=== PATIENT | female | born 1940 | race Caucasian/White ===

== ENCOUNTER 2019-03-23 15:42 | Emergency (ER) | payer MEDICARE, BC ==
--- NOTE | 2019-03-23 15:46 | UC ---
Shortness of Breath HPI - HPI Summary HPI Summary: 78 yo female presents with SOB. She tells me that she does not know her medical history or medications well and relies on her for most of this. They tell me that they are in town for a [employer] summer event. Over the last week pt has felt short of breath. States it is not worse today, but has "continued". Pt uses a walker at baseline. Over the last week has become very short of breath walking short distances which is unusual for her. Today feels a little lightheaded. Denies recent illness, fever, chills, chest pain, abdominal pain, vomiting, dysuria, headache. Pt and are unsure of all medical history, but do remember DVT, NPH, heart murmur, and ARDS. - History of Current Complaint Stated Complaint: SHORT OF BREATH Time Seen by Provider: 03/23/19 15:44 Hx Obtained From: Patient, Family/Planning And Analysis Manager Onset/Duration: Gradual Onset PMH/Surg Hx/FS Hx/Imm Hx - Additional Past Medical History Additional PMH: Heart murmur DVT NPH ARDS Cardiovascular History: Hypertension - Surgical History Surgical History: Yes Surgery Procedure, Year, and Place: Shunt brain - Family History Known Family History: Positive: Unknown - Social History Occupation: Retired Lives: With Family Alcohol Use: None Substance Use Type: None Smoking Status (MU): Never Smoked Tobacco Review of Systems All Other Systems Reviewed And Are Negative: Yes Constitutional: Positive: Negative Skin: Positive: Negative Eyes: Positive: Negative ENT: Positive: Negative Respiratory: Positive: Shortness Of Breath Cardiovascular: Positive: Negative Gastrointestinal: Positive: Negative Genitourinary: Positive: Negative Motor: Positive: Negative Neurovascular: Positive: Negative Musculoskeletal: Positive: Negative Neurological: Positive: Negative Psychological: Positive: Negative Physical Exam - Summary Physical Exam Summary: GENERAL: NAD. WDWN. No pain distress. SKIN: No rashes, sores, lesions, or open wounds. NECK: Supple. Nontender. No lymphadenopathy. CHEST: CTAB. No r/r/w. No accessory muscle use. Breathing comfortably and in no distress. CV: RRR. 5/6 systolic murmur. Pulses intact. Cap refill <2seconds. Slight b/l foot edema. ABDOMEN: Soft. NTTP. No distention or guarding. No CVA tenderness. Bowel sounds present NEURO: Alert. PSYCH: Age appropriate behavior. Triage Information Reviewed: Yes Vital Signs: Vital Signs: Temp Pulse Resp BP Pulse Ox 98.0 F 85 18 122/61 100 03/23/19 15:47 03/23/19 15:47 03/23/19 15:47 03/23/19 15:47 03/23/19 15:47 Vital Signs Reviewed: Yes Shortness of Breath Dx - Course Course Of Treatment: EKG: NSR 90bpm. No ST changes as read by Dr. Gasca. Discussed the need for higher level of care with pt and her including labwork and imaging. I recommended pt be further evaluated in the ED and they were agreeable to this. I offered an ambulance, but pt and declined - will drive her. - Differential Dx/Diagnosis Provider Diagnosis: VILLALBA (dyspnea on exertion) Discharge - Sign-Out/Discharge Documenting (check all that apply): Patient Departure All imaging exams completed and their final reports reviewed: No Studies - Discharge Plan Condition: Stable Disposition: HOME-RECOMMEND TO ED Referrals: No Primary Care Phys,NOPCP [Primary Care Provider] - Additional Instructions: Please go to the ER for further evaluation of your shortness of breath on exertion - Billing Disposition and Condition Condition: STABLE Disposition: Home-Recommend to ED
[2019-03-23 15:58] VITALS: BP 122/61
== END 2019-03-23 16:20 | disposition home health service (06) ==
LOC: UCEAST 15:42
DX: R06.00 Dyspnea, unspecified (principal); I10 Essential (primary) hypertension; Z86.718 Personal history of other venous thrombosis and embolism
CPT/HCPCS: 99202; G0463

== ENCOUNTER 2019-03-23 16:55 | Inpatient (IN) | payer MEDICARE, BC ==
[2019-03-23 17:41] LABS: ABS Basophils 0.1 10^3/ul (0-0.2); ABS Eosinophils 0.1 10^3/ul (0-0.6); ABS Lymphocytes 1.1 10^3/ul (1.0-4.8); ABS Monocytes 0.9 10^3/ul (0-0.8); ABS Neutrophils 13.5 10^3/ul (1.5-7.7); ABS Nucleated RBC 0.1 10^3/ul; Eosinophil % 0.5 %; Hematocrit 17 % (35-47); Lymphocyte % 7.3 %; Mean Corpuscular HGB Conc 29 g/dL (31-36); Mean Corpuscular Hemoglobin 24 pg (27-31); Mean Corpuscular Volume 84 fL (80-97); Mean Platelet Volume 7.1 fL (7.4-10.4); Nucleated Red Blood Cells % 0.3; Platelet Count 489 10^3/uL (150-450); Red Blood Count 2.05 10^6 /uL (3.70-4.87); Red Cell Distribution Width 21 % (10-15); White Blood Count 15.6 10^3/uL (3.5-10.8)
[2019-03-23 17:46] LABS: Troponin I 0.02 ng/mL (<0.04)
[2019-03-23] MEDS ORDERED: NS 0.9% 1000 ML** 1,000 ML IV ONE (18:13)
[2019-03-23 18:21] LABS: Microcytosis 2+; Polychromasia 1+
[2019-03-23 18:34] LABS: ALT 17 U/L (7-52); AST 15 U/L (13-39); Albumin 3.9 g/dL (3.2-5.2); Albumin/Globulin Ratio 1.6 (1-3); Alkaline Phosphatase 74 U/L (34-104); BUN/Creatinine Ratio 26.7 (8-20); Blood Urea Nitrogen 46 mg/dL (6-24); C Reactive Protein 6.09 mg/L (<8.01); CO2 Carbon Dioxide 23 mmol/L (22-32); Calcium 11.3 mg/dL (8.6-10.3); Chloride 106 mmol/L (101-111); EGFR African American 34.9 (>60); EGFR Non-African American 28.8 (>60); Globulin 2.4 g/dL (2-4); Glucose 117 mg/dL (70-100); Sodium 139 mmol/L (135-145); Total Protein 6.3 g/dL (6.4-8.9)
[2019-03-23 18:38] LABS: Anion Gap 10 mmol/L (2-11); Potassium 5.6 mmol/L (3.5-5.0)
--- NOTE | 2019-03-23 19:03 | ED ---
Shortness of Breath - HPI Summary HPI Summary: Patient presented to the ED from convenient care complaining of exertional SOB and lightheadedness 1 week. Patient had a 3.[address] from [facility] to [place] on Wednesday, and symptoms started Wednesday, patient sent from urgent care to rule out PE. Patient has history of DVT, not currently anticoagulated. Patient has also has history of right sided shunt from brain to peritoneal cavity. History of chronic wounds on right lower extremity 6 months followed by wound care once a week. History of compression socks on left lower extremity to prevent edema. Patient and deny fever, cough, sore throat, CP, N/V/D, abdominal pain, change in urine, change in BM. Patient and for historians on medical history of patient. Nonsmoker. - History of Current Complaint Chief Complaint: EDGeneral Time Seen by Provider: 03/23/19 17:32 Hx Obtained From: Patient, Family/School Bus Driver/Mechanic Onset/Duration: Gradual Onset, Lasting Days Current Severity: Moderate Aggravating Factors: Other - Exertion Associated Signs & Symptoms: Negative - Allergy/Home Medications Allergies/Adverse Reactions: Allergies Allergy/AdvReac Type Severity Reaction Status Date / Time No Known Allergies Allergy Verified 03/23/19 17:01 Home Medications: Home Medications Medical Marijuana 0.75 ml PO DAILY 03/23/19 [History Confirmed 03/23/19] Meloxicam(NF) [Mobic(NF)] 15 mg PO DAILY 03/23/19 [History Confirmed 03/23/19] PMH/Surg Hx/FS Hx/Imm Hx Endocrine/Hematology History: Denies: Hx Anticoagulant Therapy Cardiovascular History: Denies: Hx Pacemaker/ICD History: Denies: Hx Dialysis Sensory History: Denies: Hx Legally Blind Opthamlomology History: Denies: Hx Eye Prosthesis EENT History: Denies: Hx Deafness Neurological History: Denies: Hx Developmental Delay - Surgical History Surgery Procedure, Year, and Place: Shunt brain Infectious Disease History: No Infectious Disease History: Denies: Traveled Outside the [place] in Last 30 Days - Family History Known Family History: Positive: Unknown - Social History Alcohol Use: None Substance Use Type: Reports: None Smoking Status (MU): Never Smoked Tobacco Review of Systems Constitutional: Negative Eyes: Negative ENT: Negative Cardiovascular: Negative Positive: Shortness Of Breath Gastrointestinal: Negative Genitourinary: Negative Musculoskeletal: Negative Skin: Negative Neurological: Negative Psychological: Normal All Other Systems Reviewed And Are Negative: Yes Physical Exam - Summary Physical Exam Summary: Neuro exam normal. Lung sounds clear to auscultation bilaterally. RRR. Abdomen soft nontender. No peripheral edema. Triage Information Reviewed: Yes Vital Signs On Initial Exam: Initial Vitals Temp Pulse Resp BP Pulse Ox 98.5 F 79 18 144/56 99 03/23/19 16:59 03/23/19 16:59 03/23/19 16:59 03/23/19 16:59 03/23/19 16:59 Vital Signs Reviewed: Yes Appearance: Positive: Well-Appearing Skin: Positive: Warm Head/Face: Positive: Normal Head/Face Inspection Eyes: Positive: Normal Neck: Positive: Supple Respiratory/Lung Sounds: Positive: Clear to Auscultation Cardiovascular: Positive: Normal Abdomen Description: Positive: Nontender Musculoskeletal: Positive: Normal Neurological: Positive: Normal Psychiatric: Positive: Normal AVPU Assessment: Alert - Franco Coma Scale Best Eye Response: 4 - Spontaneous Best Motor Response: 6 - Obeys Commands Best Verbal Response: 5 - Oriented Coma Scale Total: 15 Diagnostics - Vital Signs Vital Signs Temp Pulse Resp BP Pulse Ox 03/23/19 18:07 95 169/57 03/23/19 16:59 98.5 F 79 18 144/56 99 - Laboratory Lab Results: Lab Results 03/23/19 03/23/19 03/23/19 Range/Units 17:16 17:16 17:16 WBC 15.6 H (3.5-10.8) 10^3/uL RBC 2.05 L (3.70-4.87) 10^6 /uL Hgb 5.0 L* (12.0-16.0) g/dL Hct 17 L (35-47) % MCV 84 (80-97) fL MCH 24 L (27-31) pg MCHC 29 L (31-36) g/dL RDW 21 H (10-15) % Plt Count 489 H (150-450) 10^3/uL MPV 7.1 L (7.4-10.4) fL Neut % (Auto) 86.0 % Lymph % (Auto) 7.3 % [place] % (Auto) 5.8 % Eos % (Auto) 0.5 % Baso % (Auto) 0.4 % Absolute Neuts (auto) 13.5 H (1.5-7.7) 10^3/ul Absolute Lymphs (auto) 1.1 (1.0-4.8) 10^3/ul Absolute Monos (auto) 0.9 H (0-0.8) 10^3/ul Absolute Eos (auto) 0.1 (0-0.6) 10^3/ul Absolute Basos (auto) 0.1 (0-0.2) 10^3/ul Absolute Nucleated RBC 0.1 10^3/ul Nucleated RBC % 0.3 Polychromasia 1+ Hypochromasia 1+ Anisocytosis 2+ Microcytosis 2+ Macrocytosis 1+ D-Dimer, Quantitative (Less Than 230) ng/mL Sodium 139 (135-145) mmol/L Potassium 5.6 H (3.5-5.0) mmol/L Chloride 106 (101-111) mmol/L Carbon Dioxide 23 (22-32) mmol/L Anion Gap 10 (2-11) mmol/L BUN 46 H (6-24) mg/dL Creatinine 1.72 H (0.51-0.95) mg/dL Est GFR ( Amer) 34.9 (>60) Est GFR (Non-Af Amer) 28.8 (>60) BUN/Creatinine Ratio 26.7 H (8-20) Glucose 117 H (70-100) mg/dL Lactic Acid 1.9 (0.5-2.0) mmol/L Calcium 11.3 H (8.6-10.3) mg/dL Total Bilirubin 0.30 (0.2-1.0) mg/dL AST 15 (13-39) U/L ALT 17 (7-52) U/L Alkaline Phosphatase 74 (34-104) U/L Troponin I 0.02 (<0.04) ng/mL C-Reactive Protein 6.09 (<8.01) mg/L B-Natriuretic Peptide (<=100) pg/mL Total Protein 6.3 L (6.4-8.9) g/dL Albumin 3.9 (3.2-5.2) g/dL Globulin 2.4 (2-4) g/dL Albumin/Globulin Ratio 1.6 (1-3) Blood Type Antibody Screen Crossmatch 03/23/19 03/23/19 03/23/19 Range/Units 17:16 17:16 17:16 WBC (3.5-10.8) 10^3/uL RBC (3.70-4.87) 10^6 /uL Hgb (12.0-16.0) g/dL Hct (35-47) % MCV (80-97) fL MCH (27-31) pg MCHC (31-36) g/dL RDW (10-15) % Plt Count (150-450) 10^3/uL MPV (7.4-10.4) fL Neut % (Auto) % Lymph % (Auto) % [place] % (Auto) % Eos % (Auto) % Baso % (Auto) % Absolute Neuts (auto) (1.5-7.7) 10^3/ul Absolute Lymphs (auto) (1.0-4.8) 10^3/ul Absolute Monos (auto) (0-0.8) 10^3/ul Absolute Eos (auto) (0-0.6) 10^3/ul Absolute Basos (auto) (0-0.2) 10^3/ul Absolute Nucleated RBC 10^3/ul Nucleated RBC % Polychromasia Hypochromasia Anisocytosis Microcytosis Macrocytosis D-Dimer, Quantitative 282 H (Less Than 230) ng/mL Sodium (135-145) mmol/L Potassium (3.5-5.0) mmol/L Chloride (101-111) mmol/L Carbon Dioxide (22-32) mmol/L Anion Gap (2-11) mmol/L BUN (6-24) mg/dL Creatinine (0.51-0.95) mg/dL Est GFR ( Amer) (>60) Est GFR (Non-Af Amer) (>60) BUN/Creatinine Ratio (8-20) Glucose (70-100) mg/dL Lactic Acid (0.5-2.0) mmol/L Calcium (8.6-10.3) mg/dL Total Bilirubin (0.2-1.0) mg/dL AST (13-39) U/L ALT (7-52) U/L Alkaline Phosphatase (34-104) U/L Troponin I (<0.04) ng/mL C-Reactive Protein (<8.01) mg/L B-Natriuretic Peptide 78 (<=100) pg/mL Total Protein (6.4-8.9) g/dL Albumin (3.2-5.2) g/dL Globulin (2-4) g/dL Albumin/Globulin Ratio (1-3) Blood Type Pending Antibody Screen Pending Crossmatch See Detail Result Diagrams: 03/23/19 17:16 03/23/19 17:16 Lab Statement: Any lab studies that have been ordered have been reviewed, and results considered in the medical decision making process. Course/Dx - Course Course Of Treatment: Patient presented to the ED from convenient care complaining of exertional SOB and lightheadedness 1 week. Patient had a 3.[address] from [facility] to [place] on Wednesday, and symptoms started Wednesday, patient sent from urgent care to rule out PE. Patient has history of DVT, not currently anticoagulated. Patient has also has history of right sided shunt from brain to peritoneal cavity. History of chronic wounds on right lower extremity 6 months followed by wound care once a week. History of compression socks on left lower extremity to prevent edema. Patient and deny fever, cough, sore throat, CP, N/V/D, abdominal pain, change in urine, change in BM. Patient and for historians on medical history of patient. Nonsmoker. Vital signs within normal limits. Hgb 5.0. HCT 17. WBC 15.6. D-dimer 282. Potassium 5.6. BUN 46. Creatinine 1.72. Calcium 11.3. Patient admitted to hospitalist for transfusion. - Diagnoses Provider Diagnoses: Anemia, Transfusion of blood during current hospitalisation, Hypercalcemia, Hyperkalemia, Elevated serum creatinine Discharge - Sign-Out/Discharge Documenting (check all that apply): Patient Departure Patient Received Moderate/Deep Sedation with Procedure: No - Discharge Plan Condition: Fair Disposition: ADMITTED TO [facility] - Billing Disposition and Condition Condition: FAIR Disposition: Admitted to [facility]
[2019-03-23 19:10] LABS: Urine Appearance Cloudy; Urine Bilirubin Negative (Negative); Urine Blood Negative (Negative); Urine Color Yellow; Urine Glucose Negative (Negative); Urine Ketones Negative (Negative); Urine Nitrite Negative (Negative); Urine Protein Negative (Negative); Urine Specific Gravity 1.019 (1.010-1.030); Urine Urobilinogen Negative (Negative)
[2019-03-23 19:26] LABS: Activated Partial Thrombo Time 26.9 seconds (26.0-38.0); INR 0.93 (0.82-1.09)
[2019-03-23] MEDS ORDERED: Acetaminophen TAB* 325 MG PO PRN (19:47)
[2019-03-23] MEDS ORDERED: TAPENTADOL 75 MG PO PRN (19:47)
[2019-03-23] MEDS ORDERED: Pantoprazole IV* 40 MG IV ONE (19:49)
[2019-03-23] MEDS ORDERED: Furosemide IV* 10 MG/ML 2 ML VIAL (20 MG) IV ONE (20:10)
[2019-03-23 20:16] LABS: Total Iron Binding Capacity 496 mcg/dL (250-450); Transferrin 354 mg/dL (203-362)
[2019-03-23 20:19] LABS: % Iron Saturation 4 % (15-55); Iron < 20 ug/dL (50-212)
[2019-03-23 20:41] LABS: Folate 12.73 ng/mL (>3.99)
--- NOTE | 2019-03-23 21:02 | HP ---
HISTORY AND PHYSICAL: DATE OF ADMISSION: 03/23/19 PRIMARY CARE PHYSICIAN: Out of state in [place]. CHIEF COMPLAINT: Shortness of breath, progressively getting worse. SUBJECTIVE: This is a 78-year-old female comes into the emergency room accompanied by her secondary to progressive shortness of breath that started sharply on Wednesday after a 3-1/[address] from [place], [place] for a course at [employer]. The patient states that she did not have any symptoms prior to her drive; however, on Wednesday, while she was attending the course at [employer], she was developing some shortness of breath with exertion , even out of work walking up the ramp to her class and back. This has progressed over the past few days. Finally, today her dyspnea was even at rest , so he brought her to the emergency room, and her initial workup in the emergency room revealed profound anemia with hemoglobin of 5, hematocrit 17, and white count of 15,000, platelets 489. Her chemistry is significant for potassium of 5.6, BUN 46, creatinine 1.7. Therefore, medicine service was called to evaluate and admit the patient for symptomatic anemia. The patient was seen and evaluated by me in the ER. History was obtained as above. The patient does report some lightheadedness but no chest pain. She does have the shortness of breath. No palpitations. No focal weakness. She denies any upper GI symptoms such as vomiting or emesis. Denies any melena; however, she is not able to comment on the color of her stool as she was not observing it. PAST MEDICAL HISTORY: Limited to the history obtained by the and is significant for: 1. Chronic back pain. She is on medical marijuana, Nucynta, Mobic, Advil. 2. History of normal pressure hydrocephalus, status post DIAGNOSTIC RADIOLOGIST shunt few years ago. 3. Status post bilateral hip replacement. 4. L4-L5 fusion. 5. History of ARDS 15 years ago. 6. Hyperlipidemia. 7. Hypertension. 8. GERD. 9. Right lower extremity ulcers due to trauma. She follows with a vascular surgeon, however. MEDICATIONS: 1. Cymbalta 90 mg daily. 2. Prinivil 40 mg daily. 3. Wellbutrin 300 daily. 4. Atrovent nasal spray for allergy. 5. Prilosec 20 mg daily. 6. Verapamil SR 120 daily. 7. Latanoprost 0.005% solution eye drop. 8. Lipitor 80 daily. 9. Nucynta 75 mg as needed every 6 hours. 10. Prolia 60 mg every 6 months. 11. Mobic 15 mg daily. 12. Zetia 10 mg daily. 13. Ibuprofen 200 mg every day as needed in addition to the Mobic. 14. Citracal. 15. B12. 16. Vitamin D. 17. Tylenol p.r.n. 18. Senna. ALLERGIES: She is allergic to IV DYE. FAMILY HISTORY: Father, known history of CVA. Mother had history of primary biliary cirrhosis. SOCIAL HISTORY: No smoking. Very seldom alcohol. No drugs. 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 She is , with 3 children. REVIEW OF SYSTEMS: As per HPI. PHYSICAL EXAMINATION GENERAL: She is awake, alert, oriented, able to provide history in full sentences. VITAL SIGNS: Temperature is 98.5, pulse is 95, blood pressure 169/57, respiratory rate 18, satting 99%. HEENT: Head and Neck: Normocephalic, atraumatic. Supple. She does have significant pallor, pale sclerae. LUNGS: Clear to auscultation. CARDIOVASCULAR: S1, S2. Regular rate and rhythm. ABDOMEN: Positive bowel sounds. Soft, nontender, nondistended. RECTAL: Exam was deferred. GENITALIA: Exam was deferred. EXTREMITIES: She does have bilateral onychomycosis. Bilateral lower extremities wrapped up with RADHA stocking and the right lower extremity wrapped with an Jesus wrap and the patient says she does have Jesus wrap. DIAGNOSTIC STUDIES/LAB DATA: Her labs were significant for sodium 139, chloride 106, BUN 46, sugar 117, creatinine 1.7, bicarb 23, potassium 5.6, calcium 11.3. BNP 78. CRP 6. AST 15, ALT 17, bili 0.3. CBC: White count 15,000, hemoglobin 5, hematocrit 17, platelets 489. EKG: Normal sinus rhythm, rate at 79. IMPRESSION AND PLAN: This is a 78-year-old female comes in with exertional dyspnea, found to be profoundly anemic with hemoglobin 5.0, also incidentally calcium of 11.3, potassium of 5.6. 1. Anemia. Etiology unclear. I suspect upper gastrointestinal given the history of Mobic with Advil along with history of gastroesophageal reflux disease. I am going to put her on clear liquid, keep her n.p.o. after midnight. GI consultation with Dr. Alanis was requested, possible EGD in the morning. IV fluids at 80 cc an hour, we will hold while transfusion. Status post type and cross, we will transfuse 2-3 units overnight, repeat labs in the morning. I did request to add iron studies to the ER labs from before the transfusion along with B12 and folate. 2. Other etiology for dyspnea, this could be pulmonary embolism; however, I am going to proceed with ultrasound. I cannot obtain CTA as she is allergic to DYE plus the renal insufficiency. The reason why because she did have a 3-1/2 hour ride and her dyspnea started suddenly on Wednesday, she may have already chronic anemia and her sudden onset of dyspnea could have been possible pulmonary embolism in addition to her anemia. Therefore, I am going to obtain an ultrasound in the morning and possible V/Q scan as she cannot tolerate CTA. 3. For her hypercalcemia probably from her volume contraction, we will correct with IV fluids. 4. Hyperkalemia, similar reason, due to possibly from her Prinivil and dehydration. We will correct with IV fluids. 5. History of chronic pain. We will hold the Mobic and Advil. Continue with Nucynta and Cymbalta for now. 6. For her hypertension, we are going to hold off on the Prinivil. Continue verapamil with holding parameters. 7. DVT prophylaxis: For now, RADHA lemon. 8. For her lower extremity ulcers, we will have a nurse assessment and possible dressing changes. If she does require wound care, we will request in the morning. [id number]/[facility] #: [id number] REBECCA
[2019-03-23] MEDS: Pantoprazole* 80 mg IN NS 80 MG/250 ML BAG IV SCH (23:05)
[2019-03-24] MEDS: NS 0.9% 1000 ML** 1,000 ML IV SCH (06:25)
[2019-03-24 07:22] LABS: ABS Basophils 0.1 10^3/ul (0-0.2); ABS Eosinophils 0.1 10^3/ul (0-0.6); ABS Lymphocytes 1.3 10^3/ul (1.0-4.8); ABS Monocytes 0.8 10^3/ul (0-0.8); ABS Neutrophils 9.5 10^3/ul (1.5-7.7); Eosinophil % 0.8 %; Hematocrit 31 % (35-47); Hemoglobin 10.1 g/dL (12.0-16.0); Lymphocyte % 11.2 %; Mean Corpuscular HGB Conc 33 g/dL (31-36); Mean Corpuscular Hemoglobin 28 pg (27-31); Mean Corpuscular Volume 85 fL (80-97); Mean Platelet Volume 7.4 fL (7.4-10.4); Nucleated Red Blood Cells % 0.3; Platelet Count 333 10^3/uL (150-450); Red Blood Count 3.64 10^6 /uL (3.70-4.87); Red Cell Distribution Width 17 % (10-15); White Blood Count 11.9 10^3/uL (3.5-10.8)
[2019-03-24 07:31] LABS: BUN/Creatinine Ratio 26.4 (8-20); Calcium 10.3 mg/dL (8.6-10.3); EGFR African American 44.2 (>60); EGFR Non-African American 36.6 (>60); Magnesium 2.3 mg/dL (1.9-2.7); Potassium 4.6 mmol/L (3.5-5.0)
[2019-03-24] MEDS: Ezetimibe TAB* 10 MG PO SCH ×2 (08:52→11:43)
[2019-03-24] MEDS: BuPROPion XL* 150 MG TAB.XL PO SCH ×2 (08:52→11:43)
[2019-03-24] MEDS: DULoxetine DR CAP* 30 MG CAP.DR PO SCH ×2 (08:52→11:42)
[2019-03-24] MEDS: Atorvastatin* 80 MG TAB PO SCH ×2 (08:53→11:43)
[2019-03-24] MEDS: Latanoprost 0.005%* 2.5 ml BTL BOTH EYES SCH (09:12)
[2019-03-24] MEDS: Verapamil SR TAB* 240 MG PO SCH (09:12)
[2019-03-24] MEDS: Pantoprazole* 80 mg IN NS 80 MG/250 ML BAG IV SCH ×2 (09:23→18:48)
--- NOTE | 2019-03-24 14:59 | PN ---
Subjective Date of Service: 03/24/19 Interval History: no complains. NPO for EGD today. H/H improved s/p 3 units pRBC. Remains on protonix drip pending EGD Past Medical History: Unchanged from Admission Objective Active Medications: Acetaminophen (Tylenol Tab*) 650 mg PO Q4H PRN PRN Reason: PAIN Atorvastatin Calcium (Lipitor*) 80 mg PO DAILY [facility] Last Admin: 03/24/19 11:43 Dose: 80 mg Bupropion HCl (Wellbutrin Xl *) 300 mg PO DAILY [facility] Last Admin: 03/24/19 11:43 Dose: 300 mg Duloxetine HCl (Cymbalta Cap*) 90 mg PO DAILY [facility] Last Admin: 03/24/19 11:42 Dose: 90 mg Ezetimibe (Zetia Tab*) 10 mg PO DAILY [facility] Last Admin: 03/24/19 11:43 Dose: 10 mg Pantoprazole Sodium (Protonix Iv Bag*) 80 mg in 250 mls @ 25 mls/hr IV Q10H [facility] Last Admin: 03/24/19 09:23 Dose: 25 mls/hr Sodium Chloride (Ns 0.9% 1000 Ml) 1,000 mls @ 100 mls/hr IV .per rate [facility] Last Admin: 03/24/19 06:25 Dose: 100 mls/hr Latanoprost (Xalatan 0.005%*) 1 drop BOTH EYES DAILY [facility] Last Admin: 03/24/19 09:12 Dose: 1 drop Tapentadol (Nucynta(Nf)) 75 mg PO Q6H PRN PRN Reason: PAIN Verapamil HCl (Calan Sr Tab*) 120 mg PO DAILY [facility] Last Admin: 03/24/19 09:12 Dose: 120 mg Vital Signs - 8 hr 03/24/19 03/24/19 03/24/19 07:15 08:00 11:15 Temperature 97.8 F 97.7 F Pulse Rate 87 85 Respiratory 18 16 18 Rate Blood Pressure 148/65 141/55 (mmHg) O2 Sat by Pulse 97 99 Oximetry Oxygen Devices in Use Now: None Appearance: Awake, alert. no distress Eyes: No Scleral Icterus Ears/Nose/Mouth/Throat: Mucous Membranes Moist Neck: NL Appearance and Movements; NL JVP, Trachea Midline Respiratory: Symmetrical Chest Expansion and Respiratory Effort Abdominal: NL Sounds; No Tenderness; No Distention Neurological: Alert and Oriented x 3 Result Diagrams: 03/24/19 06:58 03/24/19 06:58 Additional Lab and Data: Lab Results 03/23/19 03/23/19 03/23/19 Range/Units 17:16 17:16 17:16 WBC 15.6 H (3.5-10.8) 10^3/uL RBC 2.05 L (3.70-4.87) 10^6 /uL Hgb 5.0 L* (12.0-16.0) g/dL Hct 17 L (35-47) % MCV 84 (80-97) fL MCH 24 L (27-31) pg MCHC 29 L (31-36) g/dL RDW 21 H (10-15) % Plt Count 489 H (150-450) 10^3/uL MPV 7.1 L (7.4-10.4) fL Neut % (Auto) 86.0 % Lymph % (Auto) 7.3 % [place] % (Auto) 5.8 % Eos % (Auto) 0.5 % Baso % (Auto) 0.4 % Absolute Neuts (auto) 13.5 H (1.5-7.7) 10^3/ul Absolute Lymphs (auto) 1.1 (1.0-4.8) 10^3/ul Absolute Monos (auto) 0.9 H (0-0.8) 10^3/ul Absolute Eos (auto) 0.1 (0-0.6) 10^3/ul Absolute Basos (auto) 0.1 (0-0.2) 10^3/ul Absolute Nucleated RBC 0.1 10^3/ul Nucleated RBC % 0.3 Polychromasia 1+ Hypochromasia 1+ Anisocytosis 2+ Microcytosis 2+ Macrocytosis 1+ D-Dimer, Quantitative (Less Than 230) ng/mL Sodium 139 (135-145) mmol/L Potassium 5.6 H (3.5-5.0) mmol/L Chloride 106 (101-111) mmol/L Carbon Dioxide 23 (22-32) mmol/L Anion Gap 10 (2-11) mmol/L BUN 46 H (6-24) mg/dL Creatinine 1.72 H (0.51-0.95) mg/dL Est GFR ( Amer) 34.9 (>60) Est GFR (Non-Af Amer) 28.8 (>60) BUN/Creatinine Ratio 26.7 H (8-20) Glucose 117 H (70-100) mg/dL Lactic Acid 1.9 (0.5-2.0) mmol/L Calcium 11.3 H (8.6-10.3) mg/dL Total Bilirubin 0.30 (0.2-1.0) mg/dL AST 15 (13-39) U/L ALT 17 (7-52) U/L Alkaline Phosphatase 74 (34-104) U/L Troponin I 0.02 (<0.04) ng/mL C-Reactive Protein 6.09 (<8.01) mg/L B-Natriuretic Peptide (<=100) pg/mL Total Protein 6.3 L (6.4-8.9) g/dL Albumin 3.9 (3.2-5.2) g/dL Globulin 2.4 (2-4) g/dL Albumin/Globulin Ratio 1.6 (1-3) Blood Type Antibody Screen Crossmatch 03/23/19 03/23/19 03/23/19 Range/Units 17:16 17:16 17:16 WBC (3.5-10.8) 10^3/uL RBC (3.70-4.87) 10^6 /uL Hgb (12.0-16.0) g/dL Hct (35-47) % MCV (80-97) fL MCH (27-31) pg MCHC (31-36) g/dL RDW (10-15) % Plt Count (150-450) 10^3/uL MPV (7.4-10.4) fL Neut % (Auto) % Lymph % (Auto) % [place] % (Auto) % Eos % (Auto) % Baso % (Auto) % Absolute Neuts (auto) (1.5-7.7) 10^3/ul Absolute Lymphs (auto) (1.0-4.8) 10^3/ul Absolute Monos (auto) (0-0.8) 10^3/ul Absolute Eos (auto) (0-0.6) 10^3/ul Absolute Basos (auto) (0-0.2) 10^3/ul Absolute Nucleated RBC 10^3/ul Nucleated RBC % Polychromasia Hypochromasia Anisocytosis Microcytosis Macrocytosis D-Dimer, Quantitative 282 H (Less Than 230) ng/mL Sodium (135-145) mmol/L Potassium (3.5-5.0) mmol/L Chloride (101-111) mmol/L Carbon Dioxide (22-32) mmol/L Anion Gap (2-11) mmol/L BUN (6-24) mg/dL Creatinine (0.51-0.95) mg/dL Est GFR ( Amer) (>60) Est GFR (Non-Af Amer) (>60) BUN/Creatinine Ratio (8-20) Glucose (70-100) mg/dL Lactic Acid (0.5-2.0) mmol/L Calcium (8.6-10.3) mg/dL Total Bilirubin (0.2-1.0) mg/dL AST (13-39) U/L ALT (7-52) U/L Alkaline Phosphatase (34-104) U/L Troponin I (<0.04) ng/mL C-Reactive Protein (<8.01) mg/L B-Natriuretic Peptide 78 (<=100) pg/mL Total Protein (6.4-8.9) g/dL Albumin (3.2-5.2) g/dL Globulin (2-4) g/dL Albumin/Globulin Ratio (1-3) Blood Type Pending Antibody Screen Pending Crossmatch See Detail Microbiology and Other Data: Microbiology 03/23/19 20:03 Stool Occult Blood (DANIELLE) - Final Stool Assess/Plan/Problems-Billing Assessment: 78 y/o female admitted for Anemia incidental found after she presented for dyspenia. for EGD on 03/24/19 - Patient Problems (1) Anemia Current Visit: Yes Status: Acute Code(s): D64.9 - ANEMIA, UNSPECIFIED SNOMED Code(s): 385767905 Comment: - s/p 3 units pRBC - For EGD - Protonix drip (2) Back pain Current Visit: Yes Status: Acute Code(s): M54.9 - DORSALGIA, UNSPECIFIED SNOMED Code(s): 814017313 Comment: - old chronic s/p fusion - On cymbalta, nucynta (3) Hip joint replacement status Current Visit: Yes Status: Acute Code(s): Z96.649 - PRESENCE OF UNSPECIFIED ARTIFICIAL HIP JOINT SNOMED Code(s): 724326861 (4) Hyperlipidemia Current Visit: Yes Status: Acute Code(s): E78.5 - HYPERLIPIDEMIA, UNSPECIFIED SNOMED Code(s): 63768927 Comment: - lipitor 80 and zetia (5) Hypertension Current Visit: Yes Status: Acute Code(s): I10 - ESSENTIAL (PRIMARY) HYPERTENSION SNOMED Code(s): 26893504 Comment: - Prinivil 40 mg on hold will resume now that her BP been stable and got 3 units - Verapamil 240 mg daily (6) GERD (gastroesophageal reflux disease) Current Visit: Yes Status: Acute Code(s): K21.9 - GASTRO-ESOPHAGEAL REFLUX DISEASE WITHOUT ESOPHAGITIS SNOMED Code(s): 566592926 Comment: Protonix drip for now. (7) DVT prophylaxis Current Visit: Yes Status: Acute Code(s): Z29.9 - ENCOUNTER FOR PROPHYLACTIC MEASURES, UNSPECIFIED SNOMED Code(s): 836834978 Comment: SCD
[2019-03-24] MEDS: Tapentadol(NF) 50 MG TAB PO PRN (15:13)
[2019-03-24] MEDS ORDERED: Midazolam* 1 MG/ML 10 ML VIAL (10 MG) ONE (16:18)
[2019-03-24] MEDS ORDERED: fentaNYL* 50 MCG/ML 2 ML VIAL (100 MCG VIAL) ONE (16:25)
--- NOTE | 2019-03-24 18:25 | CONS ---
CC: Dr. Webster * GASTROENTEROLOGY CONSULTATION: DATE OF CONSULT: 03/24/19 CONSULTING PROVIDER: Dr. Webster. REASON FOR CONSULT: Anemia. HISTORY OF PRESENT ILLNESS: Ms. Gardner is a 78-year-old woman with a history of chronic back pain, hypertension, hyperlipidemia, and GERD, who is admitted with significant symptomatic anemia. Ms. Gardner lives in [place]. She is currently in the area taking a course at [employer] in adult continuing education. The course is in humor. She noticed progressive dyspnea with exertion over the past week. Dyspnea occurred even with minimal exertion. No other symptoms. Presented to the ED for evaluation. Was noted to have significant anemia with a hemoglobin of 5 and a hematocrit of 17. Labs otherwise demonstrated a potassium of 5.6, creatinine 1.72 and percent iron saturation of 4. Stool occult testing negative. The patient was given 3 units of blood with repeat hemoglobin 10.1. GI consulted. In interview, Ms. Gardner states that she has not had any GI symptoms. No recent reflux, although, she is on omeprazole 20 mg daily per the MAR. No nausea or vomiting, dyspnea, abdominal pain. No diarrhea or constipation. She has not noticed any hematochezia or melena. No weight loss. She believes she had a colonoscopy within the past year which wais unremarkable. She uses Mobic and Advil as needed which she says tends to be most days on the week. She only uses 200 mg of ibuprofen at other times once a day. No on aspirin or any blood thinners. PAST MEDICAL HISTORY: 1. Chronic back pain. 2. Normal pressure hydrocephalus, status post [employer] shunt several years ago. 3. Bilateral hip replacement. 4. L4-L5 fusion. 5. Hyperlipidemia. 6. Hypertension. 7. GERD. 8. Right lower extremity ulcers followed by a vascular surgeon. MEDICATIONS: 1. Cymbalta 90 mg daily. 2. Prinivil 40 mg daily. 3. Wellbutrin 300 mg daily. 4. Atrovent nasal. 5. Prilosec 20 mg daily. 6. Verapamil SR 120 mg daily. 7. Xalatan eye drops. 8. Lipitor 80 mg daily. 9. Nucynta 75 mg as needed every 6 hours. 10. Prolia. 11. Mobic 15 mg daily, although the patient states she uses it p.r.n. 12. Ibuprofen as needed. 13. Citracal. 14. B12. 15. Vitamin D. 16. Tylenol as needed. 17. Senna. ALLERGIES: No known drug allergies. She is allergic to IV DYE. FAMILY HISTORY: Mother with PBC. No other known GI or liver disease. SOCIAL HISTORY: Nonsmoker. No significant alcohol use. No drug use. 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 with 3 children and multiple grand kids. REVIEW OF SYSTEMS: Complete review of systems is negative, except as above. PHYSICAL EXAM: Vital Signs: Afebrile. Heart rate 88, blood pressure 121/54, and 100% on room air. General: Pleasant woman. Appears mildly anxious with a slight tremor. Pale. No acute distress. HEENT: Mucous membranes are moist. Cardiovascular: Regular rate and rhythm. Pulm: Breathing comfortably. Abdomen: Soft, nontender, nondistended. Extremities: No significant edema. Skin: No jaundice. Pale. DIAGNOSTIC STUDIES/LAB DATA: Labs reviewed. White count 15.6 on admission and now down to 11.9, hemoglobin is 5, hematocrit 17 on admission. Repeat hemoglobin 10.1 with the hematocrit of 31 despite receiving 3 units of blood. Platelet count 489 on admission down to 333. MCV normal at 85. Potassium 5.6 on admission, now down to 4.6. Creatinine 1.72 on admission, now down to 1.4. Unclear of baseline. Lactic acid normal. LFTs normal. CRP not elevated. Iron less than 20, percent saturation 4. Vitamin B12 elevated. Folate normal. Fecal occult blood negative. Imaging: Lower extremity Doppler negative. IMPRESSION AND RECOMMENDATION: Ms. Gardner is a 78-year-old woman with a history of chronic back pain, hypertension, hyperlipidemia, who is admitted with symptomatic anemia. Ms. Gardner is from [place]. We do not have any prior records to indicate her normal hemoglobin, although she does not recall having been told recently that she is anemic. She is iron deficient. The patient denies any gastrointestinal symptoms at all and Hemoccult stool is negative. However, given her NSAIDs use as well as iron deficiency, I think it is most appropriate to rule out an upper GI bleed. The patient believes that she had a colonoscopy within the past year making a large polyp or mass quite unlikely. 1. NPO. 2. We will plan for esophagogastroduodenoscopy this afternoon. 3. Continue IV PPI for now. 4. Request labs and colonoscopy from provider in [place]. Thank you very much for this consult. GI will continue to follow. [id number]/[facility] #: [id number] REBECCA
--- NOTE | 2019-03-24 18:50 | PRO ---
CC: Kendell Webster MD * DATE OF PROCEDURE: 03/24/19 - ROOM #419 PROCEDURE: EGD with biopsy. INPATIENT PROVIDER: Kendell Webster MD. INDICATION: The patient is from [place] and is out of state taking a course at [place]. Noticed progressive dyspnea with exertion for the past week. Presented to the ED and was markedly anemic with a hemoglobin of 5. Follow-up CBC noted a perhaps overcorrection with hemoglobin up to over 10 after 3 units of blood. No overt GI bleeding. Fecal occult negative. Iron studies consistent with deficiency. The patient does use Mobic and ibuprofen on a fairly regular basis. MEDICATIONS GIVEN: Midazolam 4 mg IV, Fentanyl 50 mcg IV. DESCRIPTION OF PROCEDURE: Full disclosure of risks was reviewed with the patient as detailed on the consent form. The patient was placed in the left lateral decubitus position and monitored with continuous pulse oximetry, capnography, interval blood pressure monitoring, and direct observation. A bite block was placed between the patient's teeth. An adult gastroscope was then inserted into the patient's mouth and advanced down the esophagus, into the stomach, and into the distal duodenum. Findings and interventions are described below. FINDINGS: Esophagus was a tubular structure which was quite tortuous, particularly in the mid to distal esophagus. In the very distal esophagus, there was an acute turn to a Schatzki ring. There was also a possible ring in the mid to distal esophagus as well. Along the Schatzki ring at the GE junction was a 1 cm clean- based ulcer. No significant irregularity of the Z line to suggest Hsieh esophagus. The GE junction occurred at approximately 33 cm. Scope was then advanced into a hiatal hernia sac. No fresh or old blood. No erosions or ulcers within the hiatal hernia. The hernia measures 5 cm. Scope was then advanced into the stomach. Stomach was examined in the forward and retroflexed views. There was no fresh or old blood. Along the lesser curvature in the proximal gastric body, there were 2 clean-based gastric ulcers. These ulcers measured three-quarters of a centimeter to a centimeter each. There were also several small erosions nearby. No other erosions or ulcers noted within the stomach. No AVMs. Biopsy was obtained from the antrum and sent for CLOtest. Scope was then advanced into the duodenum to at least the third portion. Duodenal mucosa was normal in appearance. No erosions or ulcers. No fresh or old blood. Scope was then withdrawn from the patient. The patient tolerated the procedure well and was recovered in the GI recovery area. IMPRESSION: 1. Complete colonoscopy to distal duodenum. 2. Quite tortuous esophagus with Schatzki ring and possible mid to distal partial ring. 3. Clean-based gastric ulcer occurred along Schatzki ring at the gastroesophageal junction. There were also 2 other clean-based ulcers in the proximal gastric body along the lesser curvature with nearby small erosions. I suspect that these are the source of the patient's iron deficiency anemia. Favor an NSAID-related cause. FOLLOWUP: 1. Await pathology to rule out H. pylori. Recommend oral PPI b.i.d. 2. Recommend avoiding the Mobic and ibuprofen. 3. Would recommend barium esophagram to evaluate the esophagus further given the tortuosity and ring. Interestingly, the patient denies any dysphagia. 4. The patient will need a repeat EGD in 8 weeks in [place] to ensure that the gastric ulcer and GE junction ulcer have healed. If these have not healed, then biopsy should be performed to ensure no malignancy, although I have a low suspicion for this based on her history. Thank you very much for this consult. Please contact GI if any further questions or concerns. [id number]/[facility] #: [id number] REBECCA
[2019-03-25] MEDS: NS 0.9% 1000 ML** 1,000 ML IV SCH (06:30)
[2019-03-25] MEDS: Pantoprazole* 80 mg IN NS 80 MG/250 ML BAG IV SCH (06:30)
[2019-03-25 07:00] LABS: Hematocrit 27 % (35-47); Hemoglobin 9.1 g/dL (12.0-16.0); Mean Corpuscular HGB Conc 34 g/dL (31-36); Mean Corpuscular Hemoglobin 28 pg (27-31); Mean Corpuscular Volume 84 fL (80-97); Mean Platelet Volume 7.1 fL (7.4-10.4); Platelet Count 314 10^3/uL (150-450); Red Blood Count 3.23 10^6 /uL (3.70-4.87); Red Cell Distribution Width 17 % (10-15); White Blood Count 9.2 10^3/uL (3.5-10.8)
[2019-03-25 07:20] LABS: BUN/Creatinine Ratio 18.3 (8-20); Calcium 9.2 mg/dL (8.6-10.3); EGFR Non-African American 41.3 (>60); Potassium 4.3 mmol/L (3.5-5.0)
[2019-03-25 08:02] LABS: ABS Eosinophils 0.1 10^3/ul (0-0.6); ABS Lymphocytes 0.9 10^3/ul (1.0-4.8); ABS Monocytes 0.8 10^3/ul (0-0.8); ABS Neutrophils 7.4 10^3/ul (1.5-7.7); Eosinophil % 1.4 %; Lymphocyte % 9.7 %; Nucleated Red Blood Cells % 0.4
[2019-03-25 08:24] LABS: Polychromasia 1+
[2019-03-25] MEDS: Latanoprost 0.005%* 2.5 ml BTL BOTH EYES SCH (09:52)
[2019-03-25] MEDS: Ezetimibe TAB* 10 MG PO SCH (09:54)
[2019-03-25] MEDS: Atorvastatin* 80 MG TAB PO SCH (09:54)
[2019-03-25] MEDS: BuPROPion XL* 150 MG TAB.XL PO SCH (09:54)
[2019-03-25] MEDS: Verapamil SR TAB* 240 MG PO SCH (09:55)
[2019-03-25] MEDS: DULoxetine DR CAP* 30 MG CAP.DR PO SCH (09:55)
[2019-03-25] MEDS: Tapentadol(NF) 50 MG TAB PO PRN (10:54)
[2019-03-25 11:36] VITALS: BP 83/68
--- NOTE | 2019-03-25 12:48 | DS ---
CC: Primary care doctor DISCHARGE SUMMARY: DATE OF ADMISSION: 03/23/19 DATE OF DISCHARGE: 03/25/19 PRIMARY DIAGNOSES: 1. Severe anemia. 2. Iron deficiency anemia. 3. Gastric ulcer. 4. Schatzki ring. SECONDARY DIAGNOSES: 1. Chronic back pain. 2. Normal pressure hydrocephalus. 3. Bilateral hip replacement. 4. L4-L5 fusion. 5. Acute respiratory distress syndrome in the past. 6. Hyperlipidemia. 7. Hypertension. 8. Gastroesophageal reflux disease. 9. Lower extremity ulcer due to trauma. HOSPITAL COURSE: A 78-year-old female came in to the hospital with progressive shortness of breath t hat started after her 3-1/2-hour drive from [place]. The patient came to [place] to take a cours e at [employer]. She noted progressive difficulty breathing and came in to the hospital. The patient w as noted to have a hemoglobin of 5 and hematocrit of 17, initial white count of 15,000, platelets 489 . Potassium was 5.6, BUN was 46, creatinine was 1.7. The patient was treated for symptomatic anemia, also had some lightheadedness, and her symptoms were thought to be secondary to anemia. The patient 's stool guaiac was negative; however, the patient has been on Mobic and Advil and GI bleed was high on the differential. Was placed on a clear liquid diet, n.p.o. after midnight, and GI consultation w as obtained with Dr. Shelley Bethea. The patient received a total of 3 units of blood and her h emoglobin trended up to 10.1. The patient was placed on a Protonix drip for treatment of possible up per GI bleed. The patient had EGD with Dr. China Tidwell on 03/24/19. Please refer to the EGD report for full details. Briefly, the patient was noted to have tortuous esophagus with Schatzki ring and possible mid to distal partial ring. The patient had a clean-based gastric ulcer occurring along the Schatzki ring at the GE junction. There were 2 other clean-based ulcers in the proximal gastric bod y along the lesser curvature with nearby small erosions. These were thought to be related to NSAIDs. Biopsy was obtained from the antrum and currently, H. pylori testing is pending. Dr. Shelley Bethea recommends the followin. Await pathology to rule out H. pylori. 2. Recommends oral PPI twice a day and the patient was already on omeprazole and wants to continue i t and is being discharged on omeprazole 20 mg p.o. b.i.d. 3. Recommends avoiding Mobic and ibuprofen. 4. Recommend barium esophagogram to evaluate the esophagus further given the tortuosity and Schatzki ring noted. The patient denied any dysphagia symptoms. 5. A repeat EGD in 8 weeks in [place] to ensure that the gastric ulcer and the GE junction ulce r has healed. If these have not healed, a biopsy to be performed to ensure no malignancy, although l ow suspicion based on her history. 6. The patient also had iron studies done as a workup for her anemia and had B12 and folate checked. The patient was noted to be severely iron deficient with a TSAT of only 4%. The patient would bene fit from iron infusion as an outpatient. The patient's B12 and folate noted to be in normal range. 7. The patient's JEREMI likely in the setting of anemia with prerenal etiology. This has improved and at the time of discharge, the patient's creatinine noted to be 1.2. Her lisinopril is currently held with the patient's blood pressure stable in the 130s. The lisinopril can be reinitiated based on e patient's outpatient blood pressures and after repeat BMP and ensuring that the creatinine has impr ciera and gone back to baseline. 8. In light of her severe iron deficiency, if it has not been done recently, a colonoscopy can also be considered to rule out malignancy. 9. Vitals and labs noted to be stable at the time of discharge. Iron infusion was offered in the [facility]; however, the patient wants to go back to [place] today and follow up with her primary ca re doctor on Wednesday and set it up as an outpatient, which is reasonable. Vitals and labs noted to be stable at the time of discharge. PHYSICAL EXAMINATION: Vitals: Temperature 98, pulse 86, respiratory rate 16, oxygen saturation 96% on room air, blood pressure 130/61. HEENT: NCAT. Heart: S1, S2 present. Regular rhythm exam. Marcela gs: Clear to auscultation. Abdomen: Soft. Extremities: No edema. Neuro: Alert, oriented. DIAGNOSTIC STUDIES/LAB DATA: Sodium 140, potassium 4.3, chloride 111, CO2 of 24, BUN 23, creatinine 1.2, glucose noted to be 79. WBC 9.2, hemoglobin 9.1, hematocrit 27, platelets noted to be 314. EGD as discussed in the summary above. The patient had a venous Doppler of her legs performed as the patient did drive from [place] films, an d in the setting of her JEREMI and symptomatic anemia; which was already contributing to her shortness o f breath, a CTA was not performed when she initially came to avoid contrast exposure, but to rule out further, the patient had lower extremity Doppler, which was negative for DVT. The patient had a sugey st x-ray done in the hospital, which showed no evidence of cardiopulmonary disease. MEDICATION LIST: At the time of discharge: 1. Calcium/vitamin D. 2. Medical marijuana. 3. Vitamin B12 at 500 mcg p.o. daily. 4. Vitamin D3. 5. Tylenol. 6. Senna. 7. Ezetimibe 10 mg p.o. daily. 8. Prolia 60 mg every 6 months. 9. Nucynta 75 mg p.o. q.6 hours p.r.n. 10. Atorvastatin 80 mg p.o. daily. 11. Xalatan eye drops. 12. Verapamil 120 mg p.o. daily. 13. Omeprazole 20 mg p.o. b.i.d. 14. Ipratropium b.i.d. 15. Bupropion 300 mg p.o. daily. 16. Duloxetine 90 mg p.o. daily. INSTRUCTIONS TO THE PATIENT: 1. The patient is to follow up with PCP on Wednesday. 2. The patient is to have CBC and BMP checked on Wednesday. 3. The patient's lisinopril is currently on hold and this can be restarted when her kidney functions improve if her blood pressures warrants. 4. The patient advised to stop ibuprofen and Mobic. 5. The patient to be on omeprazole 20 mg p.o. b.i.d. 6. The patient to follow up results of the H. pylori testing from the biopsy that was done during EGD. 7. Recommend barium esophagogram to evaluate the esophagus in light of her tortuosity and Lennyki r vicki noted. 8. Follow up with GI in 8 weeks for repeat EGD to ensure that the gastric ulcers and the GE junction ulcers have healed. 9. Consider colonoscopy as an outpatient. 10. Iron infusion and further treatment for iron deficiency anemia. CONDITION AT DISCHARGE: Stable. DISPOSITION: Home. TIME SPENT: Total time spent on discharge is equal to 50 minutes. [id number]/[facility] #: [id number]
== END 2019-03-25 12:35 | disposition home or self-care (01) | DRG 812 ==
LOC: ED 16:55 → MED 19:44
PROVIDERS: ADMIT Internal Medicine; ATTEND Internal Medicine
PROC: 30233N1 Transfusion of Nonautologous Red Blood Cells into Peripheral Vein, Percutaneous Approach (ICD-10-PCS; principal; 2019-03-23)
PROC: 0DJ08ZZ Inspection of Upper Intestinal Tract, Via Natural or Artificial Opening Endoscopic (ICD-10-PCS; 2019-03-24)
DX: D50.9 Iron deficiency anemia, unspecified (principal); N17.9 Acute kidney failure, unspecified; G91.2 (Idiopathic) normal pressure hydrocephalus; E87.5 Hyperkalemia; K22.2 Esophageal obstruction; E83.52 Hypercalcemia; M54.9 Dorsalgia, unspecified; K25.9 Gastric ulcer, unspecified as acute or chronic, without hemorrhage or perforation; E78.5 Hyperlipidemia, unspecified; I10 Essential (primary) hypertension; K44.9 Diaphragmatic hernia without obstruction or gangrene; K21.9 Gastro-esophageal reflux disease without esophagitis; Z96.643 Presence of artificial hip joint, bilateral; Z98.2 Presence of cerebrospinal fluid drainage device; Z79.1 Long term (current) use of non-steroidal anti-inflammatories (NSAID); Z79.899 Other long term (current) drug therapy; Z91.041 Radiographic dye allergy status; Z82.3 Family history of stroke; Z83.79 Family history of other diseases of the digestive system
CPT/HCPCS: 36415; 71045; 80048; 80053; 81003; 82270; 82607; 82746; 83540; 83550; 83605; 83735; 83880; 84100; 84484; 85025; 85060; 85379; 85610; 85730; 86140; 86850; 86900; 86901; 86922; 87077; 93005; 93970; 99156; 99157; 99284; A9270-GY; J1940; J2250; J3010; P9040